=== PATIENT | male | born 1960 | race Caucasian/White ===

== ENCOUNTER 2017-09-04 09:28 | Day surgery (SDC) | payer BC ==
[2017-09-03 17:15] VITALS: BMI 32.5
--- NOTE | 2017-09-04 01:02 | HP ---
HISTORY OF PRESENT ILLNESS: Mr. Burnett presents for evaluation of an L5 and S1 component of pain. He has treated this with [address] Hickman with some relief, however, short-lived. His ricky n radiates down to posterior aspect of the proximal leg and into the calf and foot. 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 It is unclear as to which one of these is the likely culprit, but certainly both could be involved. He is inclined at this time for s urgery and I also feel that it is appropriate. PAST MEDICAL HISTORY: Significant for hypercholesterolemia and hypothyroidism. PAST SURGICAL HISTORY: Gastric sleeve. CURRENT MEDICATIONS: Synthroid, simvastatin, Dexilant, Neurontin. ALLERGIES: No known drug allergies. PHYSICAL EXAMINATION: NEUROLOGIC: The patient is alert and oriented x3. Gait is antalgic. Lower extremity motor exam is normal. He does have a positive straight leg raise. ASSESSMENT: Lumbar radiculopathy. PLAN: Dr. Guo met with the patient, reviewed imaging, and advocated for right L4 and L5 decompress ion. He explained to the patient the risks, benefits, and alternatives of the procedure. The patien t expressed understanding and would like to move forward with surgery as discussed. I do believe the patient is mentally competent and capable of making medical decisions for himself and we will move f orward with surgery as planned. Live Segura PA-C dictating for Dr. Guo.
[2017-09-04] MEDS ORDERED: Bupivacaine HCl 0.5%/Epinephrine 1:200,000/PF 30 ml Vial ONE (09:33)
[2017-09-04] MEDS ORDERED: Thrombin 5000 UNITS/5 ML VIAL ONE (09:33)
[2017-09-04] MEDS ORDERED: CEFAZOLIN/Water 2 GM/20 ML SYRINGE ONE ×2 (09:38→14:42)
[2017-09-04] MEDS ORDERED: Midazolam HCl 2 mg/2 ml Vial ONE ×2 (09:45)
[2017-09-04] MEDS ORDERED: Fentanyl 100 MCG/2 ML VIAL ONE (09:45)
--- NOTE | 2017-09-04 11:36 | OP ---
DATE OF PROCEDURE: 09/04/2017 SURGEON: Dr. Terry Guo MARKETING REP: Johnie Segura PA-C. INDICATION: Pain. DIAGNOSIS: Lumbar radiculopathy. PROCEDURE: Right L4-5 and right L5-S1 hemilaminectomy, medial facetectomy, decompression. ANESTHESIA: General. TECHNIQUE: The patient was brought into the operating room and placed under general anesthesia. He was flipped from a supine or prone position on the operating room table. A linear incision was plann ed spanning the L4-S1 segments. After prepping and draping and after an appropriate operative pause, the incision was created. Soft tissues were swept right of midline. A self-retaining retractor was placed in the wound for optimal exposure. After confirming the appropriate level with C-arm fluoros copy, a high-speed cutting drill bit was used to perform a laminectomy along the entire portion of L5 and the inferior two-thirds of L4 as well as superior aspect of S1. The laminectomies and medial fa cetectomies were completed using 2, 3 and 4 mm Kerrisons. The descending and exiting nerve roots wer e then identified and found to be free from compression. I did palpate the L5 disc and it was minima lly protuberant, not a factor in the compression and therefore I did not remove the disc material. T he wound was irrigated. Hemostasis was maintained throughout. The wound was then closed in anatomic layers and a pressure dressing was applied. There were no known procedural complications.
[2017-09-04] MEDS ORDERED: HYDROmorphone 0.5 MG/0.5 ML SYRINGE ONE ×2 (11:40→12:00)
[2017-09-04] MEDS ORDERED: Cyclobenzaprine 10 MG TAB ONE (12:29)
[2017-09-04] MEDS ORDERED: ePHEDrine/0.9% NaCl/PF SYRINGE 50 mg/10 ml ONE (16:31)
[2017-09-04] MEDS ORDERED: Glycopyrrolate 0.2 MG/ML 5 ML SYRINGE ONE (16:31)
[2017-09-04] MEDS ORDERED: PROPOFOL 200 MG/20 ML VIAL ONE (16:31)
[2017-09-04] MEDS ORDERED: Lidocaine 1% PF 5 ML VIAL ONE (16:31)
[2017-09-04] MEDS ORDERED: Ondansetron HCl/PF 4 MG/2 ML Vial ONE (16:31)
[2017-09-04] MEDS ORDERED: Dexamethasone 20 MG/5 ML VIAL ONE (16:31)
[2017-09-04] MEDS ORDERED: Ketorolac Tromethamine 30 MG/ML VIAL ONE (16:31)
== END 2017-09-04 15:00 | disposition home or self-care (01) ==
LOC: SDC 09:28
PROVIDERS: ATTEND Neurological Surgery
PROC: 01NB0ZZ Release Lumbar Nerve, Open Approach (ICD-10-PCS; principal; 2017-09-04)
DX: M54.16 Radiculopathy, lumbar region (principal); M48.07 Spinal stenosis, lumbosacral region; E78.00 Pure hypercholesterolemia, unspecified; I48.91 Unspecified atrial fibrillation; E03.9 Hypothyroidism, unspecified; Z87.891 Personal history of nicotine dependence; Z79.899 Other long term (current) drug therapy; Z98.890 Other specified postprocedural states
CPT/HCPCS: 76001; 96374; J0670; J1100; J1170; J1885; J2001; J2250; J2405; J2704; J3010

== ENCOUNTER 2021-05-02 15:31 | Outpatient (CLI) | payer BC | END 2021-05-02 15:32 | disposition home or self-care (01) | LOC: BICULT 15:31 | PROVIDERS: ATTEND Urology | DX: N43.40 Spermatocele of epididymis, unspecified (principal); N50.3 Cyst of epididymis; N43.3 Hydrocele, unspecified; N44.2 Benign cyst of testis | CPT/HCPCS: 76870; 93976 ==

== ENCOUNTER 2021-05-17 14:15 | Outpatient (CLI) | payer BC ==
[2021-05-17 15:26] LABS: Hemoglobin 13.7 g/dL (13.5-17.5); Mean Corpuscular HGB CONC 34.1 g/dL (32.0-36.0); Mean Corpuscular Hemoglobin 30.2 pg (27.0-33.0); Mean Corpuscular Volume 88.7 fl (81.2-95.1); Mean Platelet Volume 10.5 fl (7.4-10.4); Platelet Count 166 10x3/uL (150-450); RBC Distribution Width 12.5 % (11.5-14.5); Red Blood Cell (RBC) Count 4.53 10x6/uL (4.32-5.72); White Blood Cell (WBC) Count 5.3 10x3/uL (3.5-10.5)
[2021-05-17 15:39] LABS: PTT 26.8 sec (22.0-33.0); Prothrombin Time 11.2 sec (9.5-12.1)
[2021-05-17 15:43] LABS: Anion Gap 15 mmol/L (10-20); BUN (Urea Nitrogen) 27 mg/dL (8.4-25.7); Calc. Creatinine Clearance 0 mL/min (70-130); Calcium 8.9 mg/dL (7.8-10.44); Carbon Dioxide 24 mmol/L (23-31); Chloride 108 mmol/L (98-107); Glucose 91 mg/dL (80-115); Sodium 143 mmol/L (136-145)
[2021-05-17 15:51] LABS: Bilirubin Neg (Negative); Blood, Urine Negative (Negative); Clarity Clear (Clear); Glucose, Urine (Dipstick) Normal (Negative); Ketone, Urine Negative (Negative); Leukocyte Negative (Negative); Nitrite Negative (Negative); Protein, Urine (Dipstick) Negative (Neg-Trace); Specific Gravity, Urine 1.015 (1.002-1.036); Urobilinogen Normal mg/dL (Less than 2)
[2021-05-17 16:40] LABS: Bacteria/HPF None Seen HPF (None Seen); RBC/HPF None Seen HPF (0-3); Squamous Epithelial None Seen HPF (0-3); WBC/HPF None Seen HPF (0-3)
[2021-05-18 07:35] LABS: SARS-CoV-2 PCR by NAA Not Detected (NotDetected)
== END 2021-05-17 14:16 | disposition home or self-care (01) ==
LOC: LABBT 14:15
PROVIDERS: ATTEND Urology
DX: Z01.818 Encounter for other preprocedural examination (principal); N43.40 Spermatocele of epididymis, unspecified; Z20.822 Contact with and (suspected) exposure to COVID-19
CPT/HCPCS: 71046; 80048; 81001; 85027; 85610; 85730; 87086; 93005; 93010; U0003; U0005

== ENCOUNTER 2021-05-22 06:11 | Day surgery (SDC) | payer BC ==
[2021-05-19 10:50] VITALS: BMI 27.1
[2021-05-22] MEDS ORDERED: Bacitracin Zinc Ointment 30 gm TUBE ONE (06:37)
[2021-05-22] MEDS ORDERED: Neomycin-Polymyxin 1 ML AMP ONE (06:37)
[2021-05-22] MEDS ORDERED: Fentanyl 100 MCG/2 ML VIAL ONE (07:16)
[2021-05-22] MEDS ORDERED: Phenylephrine 10 MG/ML VIAL ONE (07:17)
[2021-05-22] MEDS ORDERED: Midazolam HCl 2 mg/2 ml Vial ONE (07:24)
[2021-05-22] MEDS ORDERED: Lidocaine 1% PF 5 ML VIAL ONE (07:34)
[2021-05-22] MEDS ORDERED: PROPOFOL 200 MG/20 ML VIAL ONE (07:34)
[2021-05-22] MEDS ORDERED: Dexamethasone 20 MG/5 ML VIAL ONE (07:34)
[2021-05-22] MEDS ORDERED: Ondansetron PF 4 MG/2 ML Vial ONE (07:34)
[2021-05-22] MEDS ORDERED: Ketorolac Tromethamine 30 MG/ML VIAL ONE (07:34)
[2021-05-22] MEDS ORDERED: Bupivacaine 0.25% HCL 30 ML VIAL ONE (07:44)
[2021-05-22] MEDS ORDERED: HYDROcodone/Acetaminophen 5/325 mg Tablet ONE (09:46)
== END 2021-05-22 10:30 | disposition home or self-care (01) ==
LOC: SDC 06:11
PROVIDERS: ATTEND Urology
PROC: 0VBK0ZZ Excision of Left Epididymis, Open Approach (ICD-10-PCS; principal; 2021-05-22)
DX: N43.41 Spermatocele of epididymis, single (principal); R35.0 Frequency of micturition; E03.9 Hypothyroidism, unspecified; E78.00 Pure hypercholesterolemia, unspecified; K21.9 Gastro-esophageal reflux disease without esophagitis; Z87.891 Personal history of nicotine dependence; Z79.82 Long term (current) use of aspirin; Z79.899 Other long term (current) drug therapy; Z98.84 Bariatric surgery status
CPT/HCPCS: 88304; J0690; J1100; J1885; J2250; J2370; J2405; J2704; J3010; S0020

== ENCOUNTER → 2023-02-28 | Day surgery (SDC) | payer OTHER ==
[2023-02-27 10:00] VITALS: BMI 29.8
[~2023-02-28] MED LIST: Dexamethasone 20 MG/5 ML VIAL ONE; Heparin 10,000 UNITS/ 10 ML VIAL ONE; Heparin 25,000 units/D5W 500 ML ONE; Midazolam HCl 2 mg/2 ml Vial ONE; Ondansetron PF 4 MG/2 ML Vial ONE; PROPOFOL 200 MG/20 ML VIAL ONE; Phenylephrine 10 MG/ML VIAL ONE; Protamine Sulfate 50 MG/5 ML VIAL ONE; Rocuronium Bromide 10 MG/ML (10ML VIAL) ONE; fentaNYL 50 mcg/mL 1 mL Vial ONE; fentaNYL PF 100 MCG/2 ML SYRINGE ONE
== END ==
LOC: SDC 06:17
PROVIDERS: ATTEND Internal Medicine Cardiovascular Disease
PROC: B246ZZ4 Ultrasonography of Right and Left Heart, Transesophageal (ICD-10-PCS; principal; 2023-02-28)
DX: I48.0 Paroxysmal atrial fibrillation (principal); R00.1 Bradycardia, unspecified
CPT/HCPCS: 85347; 93005; 93312; 93656; 93657; C1732; C1759; C1760; C1894; C2630; J1100; J1644; J2250; J2370; J2405; J2704; J2720; J3010

== ENCOUNTER 2024-08-06 14:46 | Outpatient (CLI) | payer OTHER ==
[2024-08-06 15:38] LABS: #Basophils Less than 0.03 10x3/uL (0.0-0.2); %Basophils 0.3 % (0.0-1.0); %Lymphocytes 45.5 % (21.0-51.0); %Monocytes 8.4 % (0.0-10.0); %Neutrophils 42.5 % (42.0-75.0); Hematocrit 37.7 % (42.0-52.0); Hemoglobin 12.8 g/dL (14.0-18.0); Mean Corpuscular Hemoglobin 30.1 pg (27.0-31.0); Mean Corpuscular Volume 88.7 fL (78.0-98.0); Mean Platelet Volume 10.9 fL (7.4-10.4); Platelet Count 147 10x3/uL (130-400); Red Blood Cell (RBC) Count 4.25 mill/uL (4.70-6.10)
[2024-08-06 16:30] LABS: Anion Gap 13 mmol/L (10-20); BUN (Urea Nitrogen) 25 mg/dL (8.4-25.7); Calc. Creatinine Clearance 0 mL/min (70-130); Calcium 9.2 mg/dL (7.8-10.44); Carbon Dioxide 26 mmol/L (23-31); Chloride 105 mmol/L (98-107); Estimated GFR 91; Glucose 82 mg/dL (80-115); Potassium 4.2 mmol/L (3.5-5.1); Sodium 140 mmol/L (136-145)
== END 2024-08-06 14:47 | disposition home or self-care (01) ==
LOC: LABBT 14:46
PROVIDERS: ATTEND Surgery
DX: Z01.818 Encounter for other preprocedural examination (principal); K40.20 Bilateral inguinal hernia, without obstruction or gangrene, not specified as recurrent
CPT/HCPCS: 80048; 85025; 93005; 93010